=== PATIENT | female | born 1990 | race Hispanic/Latino ===

== ENCOUNTER 2017-10-25 05:15 | Inpatient (IN) | payer BC ==
--- OUTSIDE RECORDS SUMMARY | 2017-10-25 05:17 | XMS REPORT ---
:1990 Author Organization [employer] Care Team Providers Name Role Phone Ian Mckeon Provider Role Unavailable Allergies, Adverse Reactions, Alerts Substance Reaction Event Type N.K.D.A. Info Not Available Non Drug Allergy Problems Problem Type Condition Code Onset Dates Condition Status Assessment Encounter for supervision of other Z34.83 Active normal in third trimester Problem Encounter for supervision of other Z34.82 Active normal , second trimester Assessment Abnormal glucose affecting O99.810 Active Assessment Anemia affecting in O99.013 Active third trimester Problem Anemia affecting in O99.013 Active third trimester Problem Encounter for supervision of other Z34.83 Active normal in third trimester Problem Abnormal glucose affecting O99.810 Active Problem Encounter for supervision of Z34.91 Active low-risk in first trimester Problem Amenorrhea N91.2 Active Problem Anemia complicating in O99.012 Active second trimester Problem Encounter to determine O36.80X0 Active viability of , single or unspecified fetus Medications Medication Code Code Instructions Start End Status Dosage System Date Date Ferralet 90 [facility] 42998061695 90-1 MG Orally Sep 13, Active 1 tablet Once a day 2017 [place]ra[place] 90 [place] 84739377737 90-1 & 300 MG Sep 13, Active as directed DHA Orally 2017 Results No Known Results Summary Purpose eClinicalWorks Submission
--- OUTSIDE RECORDS SUMMARY | 2017-10-25 05:17 | XMS REPORT ---
:1990 Author Organization [employer] Care Team Providers Name Role Phone Ian Mckeon Provider Role Unavailable Allergies No Known Allergies Problems Problem Type Condition Code Onset Dates Condition Status Problem Encounter for supervision of other Z34.82 Active normal , second trimester Problem Encounter for supervision of Z34.91 Active low-risk in first trimester Problem Amenorrhea N91.2 Active Problem Encounter to determine O36.80X0 Active viability of , single or unspecified fetus Medications No Known Medications Results No Known Results Summary Purpose [employer] Submission
--- OUTSIDE RECORDS SUMMARY | 2017-10-25 05:17 | XMS REPORT ---
:1990 Author Organization [employer] Care Team Providers Name Role Phone Ian Mckeon Provider Role Unavailable Allergies No Known Allergies Problems Problem Type Condition Code Onset Dates Condition Status Assessment Abnormal glucose affecting O99.810 Active Assessment Encounter for supervision of other Z34.83 Active normal in third trimester Problem Encounter for supervision of other Z34.83 Active normal in third trimester Problem Encounter to determine O36.80X0 Active viability of , single or unspecified fetus Problem Abnormal glucose affecting O99.810 Active Problem Encounter for supervision of other Z34.82 Active normal , second trimester Problem Encounter for supervision of Z34.91 Active low-risk in first trimester Problem Amenorrhea N91.2 Active Medications No Known Medications Results No Known Results Summary Purpose [employer] Submission
--- OUTSIDE RECORDS SUMMARY | 2017-10-25 05:17 | XMS REPORT ---
:1990 Author Organization [employer] Care Team Providers Name Role Phone Ian Mckeon Provider Role Unavailable Allergies, Adverse Reactions, Alerts Substance Reaction Event Type N.K.D.A. Info Not Available Non Drug Allergy Problems Problem Type Condition Code Onset Dates Condition Status Assessment Encounter for supervision of other Z34.82 Active normal , second trimester Problem Encounter for supervision of other Z34.82 Active normal , second trimester Problem Encounter for supervision of Z34.91 Active low-risk in first trimester Problem Amenorrhea N91.2 Active Assessment Encounter for supervision of Z34.91 Active low-risk in first trimester Assessment Encounter to determine O36.80X0 Active viability of , single or unspecified fetus Problem Encounter to determine O36.80X0 Active viability of , single or unspecified fetus Assessment Amenorrhea N91.2 Active Medications No Known Medications Results No Known Results Summary Purpose [employer] Submission
--- OUTSIDE RECORDS SUMMARY | 2017-10-25 05:17 | XMS REPORT ---
:1990 Author Organization [employer] Care Team Providers Name Role Phone Ian Mckeon Provider Role Unavailable Allergies No Known Allergies Problems Problem Type Condition Code Onset Dates Condition Status Problem Encounter to determine O36.80X0 Active viability of , single or unspecified fetus Problem Amenorrhea N91.2 Active Problem Encounter for supervision of other Z34.83 Active normal in third trimester Assessment Encounter for supervision of other Z34.83 Active normal in third trimester Problem Encounter for supervision of other Z34.82 Active normal , second trimester Problem Encounter for supervision of Z34.91 Active low-risk in first trimester Medications No Known Medications Results No Known Results Summary Purpose [employer] Submission
--- OUTSIDE RECORDS SUMMARY | 2017-10-25 05:18 | XMS REPORT ---
[...] Status Dosage System Date Date Ferralet 90 [facility] [id number] 90-1 MG Orally Sep 13, Active 1 tablet Once a day 2017 CitraNatal 90 [place] 72928877992 90-1 & 300 MG Sep 13, Active as directed DHA Orally 2017 Results No Known Results Summary Purpose [employer] Submission
--- OUTSIDE RECORDS SUMMARY | 2017-10-25 05:18 | XMS REPORT ---
:1990 Author Organization [employer] Care Team Providers Name Role Phone Sydney Corbett Provider Role Unavailable Allergies No Known Allergies Problems Problem Type Condition Code Onset Dates Condition Status Problem Amenorrhea N91.2 Active Problem Encounter for supervision of other Z34.82 Active normal , second trimester Assessment Encounter for supervision of other Z34.83 Active normal , third trimester Problem Abnormal glucose affecting O99.810 Active Problem Anemia affecting in O99.013 Active third trimester Problem Encounter for supervision of other Z34.83 Active normal , third trimester Problem Encounter to determine O36.80X0 Active viability of , single or unspecified fetus Problem Encounter for supervision of Z34.91 Active low-risk in first trimester Problem Encounter for supervision of other Z34.83 Active normal in third trimester Problem Anemia complicating in O99.012 Active second trimester Medications Medication Code Code Instructions Start End Status Dosage System Date Date CitraNatal 90 [facility] [id number] 90-1 & 300 MG Sep 13, Active as directed DHA Orally 2017 Ferralet 90 [facility] [id number] 90-1 MG Orally Sep 13, Active 1 tablet Once a day 2017 Results No Known Results Summary Purpose [employer]ClinicalWorks Submission
--- OUTSIDE RECORDS SUMMARY | 2017-10-25 05:18 | XMS REPORT ---
:1990 Author Organization e[employer]Works Care Team Providers Name Role Phone Ian Mckeon Provider Role Unavailable Allergies No Known Allergies Problems Problem Type Condition Code Onset Dates Condition Status Assessment Encounter for supervision of other Z34.82 Active normal , second trimester Problem Encounter for supervision of other Z34.82 Active normal , second trimester Assessment Anemia complicating in O99.012 Active second trimester Problem Anemia affecting in O99.013 Active [...]
--- OUTSIDE RECORDS SUMMARY | 2017-10-25 05:18 | XMS REPORT ---
[...] Anemia affecting in O99.013 Active third trimester Assessment Encounter for supervision of [...] Instructions Start End Status Dosage System Date CitraNatal 90 [facility] [id number] 90-1 & 300 MG Sep 13, Active as directed DHA Orally 2017 Ferralet 90 [place] [id number] 90-1 MG Orally Sep 13, Active 1 tablet Once a day 2017 Results No Known Results Summary Purpose eClinicalWorks Submission
--- OUTSIDE RECORDS SUMMARY | 2017-10-25 05:18 | XMS REPORT ---
[...] Status Dosage System Date Date Ferralet 90 [facility] [id number] 90-1 MG Orally Sep 13, Active 1 tablet Once a day 2017 CitraNatal 90 [facility] [id number] 90-1 & 300 MG Sep 13, Active as directed DHA Orally 2017 Results No Known Results Summary Purpose eClinicalWorks Submission
[2017-10-25] MEDS ORDERED: CARBOPROST TROME 250 MCG/ML IM ONE (06:25)
[2017-10-25] MEDS ORDERED: METHYLERGONOVINE 0.2MG/ML AMP IM ONE (06:25)
[2017-10-25] MEDS ORDERED: OXYTOCIN/LR 20 UNIT/1,000 ML BAG IV ONE (06:25)
[2017-10-25] MEDS ORDERED: ROPIVACAINE HCL 0 ML IV ONE (06:35)
[2017-10-25] MEDS ORDERED: ROPIVACAINE HCL 0 ML ONE (06:35)
[2017-10-25] MEDS ORDERED: FENTANYL CITR 100 MCG/2 ML ONE (06:36)
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
[2017-10-25] MEDS ORDERED: Ringers Lactate 2,000 ML IV ONE (07:22)
[2017-10-25] MEDS ORDERED: KETOROLAC 30 MG/ML INJ ONE (07:25)
[2017-10-25] MEDS ORDERED: LIDOCAINE 2% INJ, 20 mL 20 ML ONE (07:29)
[2017-10-25] MEDS: CODEINE 30MG/APAP 300MG TAB PO PRN ×2 (08:00→13:48)
[2017-10-25] MEDS ORDERED: CODEINE 30MG/APAP 300MG TAB ONE (08:06)
--- NOTE | 2017-10-25 09:31 | P.OP ---
Preoperative diagnosis: Term IUP, Spontaneous labor Postoperative diagnosis: Same with precipitous vaginal delivery Primary procedure: Secondary procedure: AROM Anesthesia: None Estimated blood loss: 300 cc Specimen: None Findings: See operative report Operative Technique: FINDINGS: Male fetus in OA position, APGARS of 8/9 at 1 and 5 minutes respectively, weight of 7 lb 12 oz, clear amniotic fluid. Nuchal cord x1. Normal appearing placenta. Right labial minora tear and clitoral tears. Stage I: 3 h; Stage II: 25 min. HISTORY OF PRESENT ILLNESS: The patient is a 26-year-old female who is a at 38w who was admitted for spontaneous onset of labor. She had care by Dr. Mckeon and was complicated by short interval. Labs showed rubella non-immune status. On admission, she was noted to be 7-8 cm dilated. She denied other complaints and noted positive movement. PROCEDURE DETAILS: The patient was admitted to Labor and Delivery for expectant management. She requested an epidural, but was unable to get one due to rapid progress. AROM was done, with clear fluid noted. She had a spontaneous vaginal delivery of a live born male with clear fluid from an OA position over an intact perineum at 07:07. After delivery of the head a nuchal cord was noted but was not reduced as patient continued to push and the shoulders and body followed without difficulty. Bulb suctioning was done. Patient declined skin to skin contact. The cord was clamped and cut and was taken to the warmer. Findings as stated above. There was no depression. Infant was crying, vigorous, and moving all extremities. Spontaneous delivery of an intact placenta with a three-vessel cord was noted at 07:20. On examination, there was a right labial minora tear that was bleeding and a clitoral tear. Local with lidocaine was injected and anesthesia confirmed. A figure of 8 using 3-0 chromic was placed in the right labial tear and hemostasis was achieved. The clitoral tear was repaired using the same suture in a running, unlocking fashion. Hemostasis was noted. On vaginal exam , there were no noted cervical or vaginal sidewall lacerations. Patient tolerated procedure well and there were no complications. Estimated blood loss was ~300 cc. Mother and infant are in recovery doing well at this time. Complications: None Fluids & blood products: mIVF Transferred to: Recovery Room Condition: Good
[2017-10-25 10:25] VITALS: BMI 29.6
[2017-10-25] MEDS ORDERED: NA CHLORIDE 0.9% 1,000 ML IV SCH (10:30)
[2017-10-25] MEDS ORDERED: ONDANSETRON 4 MG (ODT) TAB PO PRN (10:40)
[2017-10-25] MEDS ORDERED: ACETAMINOPHEN 500 MG TAB PO PRN (10:40)
[2017-10-25] MEDS ORDERED: IBUPROFEN 400 MG TAB ONE (10:45)
[2017-10-25] MEDS: IBUPROFEN 400 MG TAB PO PRN (10:45)
[2017-10-25 12:31] LABS: Absolute Lymphocytes (CBC) 1.8 K/uL (0.7-4.9); Absolute Monocytes 0.4 K/uL (0.1-1.3); Basophils % 0.3 % (0-1.3); Eosinophils % 0.2 % (0-4.4); Hematocrit 32.3 % (36.0-45.0); Lymphocytes % 14.6 % (15.3-44.8); MCH 23.4 pg (27.0-35.0); MCV 73.8 fL (80-100); MPV 8.5 fL (7.6-11.3); RBC Red Blood Cell Count 4.38 M/uL (3.86-4.86)
[2017-10-25 13:30] LABS: BUN Blood Urea Nitrogen 9 mg/dL (7-18); Bicarbonate 20 mmol/L (21-32); Glucose Level 124 mg/dL (74-106); Sodium Level 140 mmol/L (136-145)
[2017-10-25 14:01] LABS: RPR Titer ND
[2017-10-25] MEDS ORDERED: MEASLES,MUMPS,RUBELLA VAC 0.5ML SQVAC ONE (14:52)
[2017-10-25] MEDS ORDERED: Rho(D) IG (HUMAN) 300 MCG SYR IM ONE (15:00)
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
[2017-10-25 22:18] LABS: RPR (Rapid Plasma Reagin) NON-REACT (NON-REACT)
[2017-10-26] MEDS: CODEINE 30MG/APAP 300MG TAB PO PRN ×2 (01:45→11:54)
[2017-10-26] MEDS: IBUPROFEN 400 MG TAB PO PRN (06:00)
[2017-10-26 06:34] LABS: Absolute Lymphocytes (CBC) 3.4 K/uL (0.7-4.9); Absolute Monocytes 0.6 K/uL (0.1-1.3); Absolute Neutrophil 5.6 K/uL (1.8-8.0); Basophils % 0.4 % (0-1.3); Eosinophils % 0.9 % (0-4.4); Hematocrit 23.7 % (36.0-45.0); Lymphocytes % 35.1 % (15.3-44.8); MCH 23.8 pg (27.0-35.0); MCV 74.2 fL (80-100); MPV 8.2 fL (7.6-11.3); RBC Red Blood Cell Count 3.19 M/uL (3.86-4.86)
[2017-10-26 06:47] LABS: BUN Blood Urea Nitrogen 6 mg/dL (7-18); Bicarbonate 23 mmol/L (21-32); Glucose Level 81 mg/dL (74-106); Potassium 3.9 mmol/L (3.5-5.1); Sodium Level 142 mmol/L (136-145)
[2017-10-26] MEDS ORDERED: NA CHLORIDE 0.9% 1,000 ML IV ONE (07:06)
[2017-10-26 07:59] VITALS: TEMP 97.1
[2017-10-26] MEDS ORDERED: NA CHLORIDE 0.9% 1,000 ML IV SCH (08:00)
[2017-10-26] MEDS ORDERED: METOCLOPRAMIDE 10MG/10ML UCUP PO ONE (11:49)
[2017-10-26] MEDS ORDERED: METOCLOPRAMIDE 5 MG TAB PO ONE (11:55)
[2017-10-26 11:57] VITALS: BP 108/76
[2017-10-26] MEDS ORDERED: METOCLOPRAMIDE 5 MG TAB ONE (11:58)
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
[2017-10-27 19:39] LABS: HBsAG Nonreactive (Nonreactive)
== END 2017-10-26 15:10 | disposition home or self-care (01) | DRG 775 ==
LOC: L&D 05:15 → 2ND-WC 05:17
PROVIDERS: ADMIT Student in an Organized Health Care Education/Training Program; ATTEND Obstetrics & Gynecology
PROC: 10907ZC Drainage of Amniotic Fluid, Therapeutic from Products of Conception, Via Natural or Artificial Opening (ICD-10-PCS; principal; 2017-10-25)
PROC: 10E0XZZ Delivery of Products of Conception, External Approach (ICD-10-PCS; 2017-10-25)
PROC: 0HQ9XZZ Repair Perineum Skin, External Approach (ICD-10-PCS; 2017-10-25)
DX: O70.0 First degree perineal laceration during delivery (principal); D62 Acute posthemorrhagic anemia; O69.81X0 Labor and delivery complicated by cord around neck, without compression, not applicable or unspecified; O99.02 Anemia complicating childbirth; Z3A.38 38 weeks gestation of pregnancy; Z37.0 Single live birth; Z23 Encounter for immunization
CPT/HCPCS: 36415; 80048; 85025; 85461; 86592; 86850; 86900; 86901; 87340; 90707; G0433; J2210; J2590; J2790; J2795; J3010; J7030